=== PATIENT | female | born 2000 | race Caucasian/White ===

== ENCOUNTER 2024-07-05 18:06 | Emergency (ER) | payer SELFPAY ==
[~2024-07-05] VITALS: Ht 167.6 cm; Wt 85.0 kg
[2024-07-05 18:10] VITALS: O2SAT 98
[2024-07-05 19:19] LABS: BASOPHILS % 0.4 % (0.0-2.0); EOSINOPHILS % 2.9 % (0.0-5.0); HEMATOCRIT. 41.1 % (36.0-48.0); HEMOGLOBIN. 13.6 g/dL (12.0-16.0); LYMPHOCYTES % 13.3 % (20.0-50.0); MEAN CORPUSCULAR HEMOGLOBIN 29.7 pg (28.0-32.0); MEAN CORPUSCULAR HGB CONC 33.1 g/dL (31.0-37.0); MEAN CORPUSCULAR VOLUME 89.7 fL (81.0-99.0); MEAN PLATELET VOLUME 7.3 fl (7.4-10.4); MONOCYTES % 5.8 % (2.0-8.0); NEUTROPHILS % 77.6 % (40.0-76.0); PLATELET 313 x1000/uL (130-400); RED BLOOD CELL COUNT 4.58 mill/uL (4.2-5.4); RED CELL DISTRIBUTION WIDTH 13.1 % (11.6-14.6); WHITE BLOOD COUNT 13.4 x1000/uL (4.5-11.0)
[2024-07-05 19:35] LABS: CHLORIDE 107 mEq/L (98-107); POTASSIUM 3.5 mEq/L (3.5-5.1); SODIUM 140 mEq/L (136-145)
[2024-07-05 19:36] LABS: CALCIUM 8.9 mg/dL (8.7-10.4); CARBON DIOXIDE 27 mEq/L (21-32)
[2024-07-05 19:41] LABS: CREATININE 1.1 mg/dL (0.6-1.0); GLUCOSE 102 mg/dL (70-105); UREA NITROGEN BLOOD 13 mg/dL (9-23)
[2024-07-05 19:43] LABS: TROPONIN I HIGH SENSITIVITY < 4 ng/L (3.0-34)
[2024-07-05] MEDS: HYDROCODONE/ACETAMINOPHEN 5/325MG TABLET PO ONE (21:37)
[2024-07-05] MEDS: ASPIRIN 325MG EC TABLET PO ONE (21:38)
[2024-07-05 21:57] LABS: HCG SCREEN NEGATIVE
[2024-07-05] MEDS ORDERED: IBUP-1523 MT (23:31)
[2024-07-05] MEDS ORDERED: TOPUD MT (23:31)
[2024-07-06] VITALS: BP 104/68; PULSE 72; RESP 17; TEMP 36.61404; O2SAT 100
[2024-07-06] MEDS: IOHEXOL-350 100 ML BOTTLE ONE (00:17)
== END 2024-07-06 00:21 | disposition home or self-care (01) ==
LOC: ER 18:06 → EDBEDREQ 18:35 → ER 07-06 00:21
DX: R07.89 Other chest pain (principal)
CPT/HCPCS: 99285; 71275; 71045; 80048; 84703; 83880; 85025; 85379; 84484; 36415; 93005; Q9967